=== PATIENT | male | born 1965 | race Caucasian/White ===

== ENCOUNTER → 2018-03-04 | Outpatient (CLI) | payer BC, OTHER | LOC: M SLEEP 20:00 | DX: G47.33 Obstructive sleep apnea (adult) (pediatric) (principal) | CPT/HCPCS: 95810 ==

== ENCOUNTER → 2018-03-24 | Outpatient (CLI) | payer BC, OTHER | LOC: M SLEEP 21:43 | DX: G47.33 Obstructive sleep apnea (adult) (pediatric) (principal) | CPT/HCPCS: 95811 ==

== ENCOUNTER → 2022-12-30 | Outpatient (CLI) | payer BC, OTHER ==
[2022-12-30 10:05] LABS: BASO % 0.7 % (0.0-1.0); EOS # 0.2 10^3/uL (0.0-0.5); EOS % 4.4 % (0.0-3.0); HEMATOCRIT 45.8 % (42.0-52.0); HEMOGLOBIN 15.1 g/dl (13.5-17.5); LYMPH # 1.4 10^3/uL (1.5-5.0); LYMPH % 33.4 % (24.0-44.0); MEAN CORPUSCULAR HEMOGLOBIN 28.9 pg (27.0-33.0); MEAN CORPUSCULAR VOLUME 87.6 fl (80.0-96.0); MONO # 0.5 10^3/uL (0.0-0.8); NEUTROPHILS # 2.1 10^3/uL (1.5-8.5); NEUTROPHILS % 50.3 % (36.0-66.0); PLATELET COUNT, AUTOMATED 230 10^3/uL (150-450); RED BLOOD COUNT 5.23 10^6/uL (4.30-6.10); WHITE BLOOD COUNT 4.1 10^3/uL (4.0-10.0)
[2022-12-30 10:32] LABS: PROSTATIC SPECIFIC AG MONITOR 0.97 NG/ML (< 4.00)
[2022-12-30 10:35] LABS: TOTAL IRON BINDING CAPACITY 365 UG/DL (250-425)
[2022-12-30 10:36] LABS: ALBUMIN 3.8 G/DL (3.2-5.2); ALKALINE PHOSPHATASE 72 U/L (46-116); ALT/SGPT 16 U/L (7.0-40); AST/SGOT 13 U/L (<34); BILIRUBIN,TOTAL 0.7 MG/DL (0.3-1.2); BLOOD UREA NITROGEN 15 MG/DL (9-23); CALCIUM LEVEL 9.4 MG/DL (8.5-10.1); CARBON DIOXIDE LEVEL 32 MMOL/L (20-31); CHLORIDE LEVEL 105 MMOL/L (98-107); CHOLESTEROL LEVEL 195 MG/DL (<200); CHOLESTEROL RISK RATIO 3.51 (<5); CREATININE FOR GFR 1.19 MG/DL (0.70-1.30); GLOMERULAR FILTRATION RATE > 60.0 (>56); GLUCOSE, FASTING 84 MG/DL (60-100); HDL CHOLESTEROL 55.4 MG/DL (>40); IRON (FE) 112 UG/DL (65-175); NON-HDL-C 139.6 MG/DL; PERCENT SATURATION 30.7 % (19.7-50.0); POTASSIUM SERUM 4.2 MMOL/L (3.5-5.1); SODIUM LEVEL 143 MMOL/L (136-145); TOTAL PROTEIN 6.5 G/DL (5.7-8.2); TRIGLYCERIDES LEVEL 108 MG/DL (<150)
[2022-12-30 10:37] LABS: TOTAL 25(OH) VITAMIN D 43.4 NG/ML (20.0-100.0)
[2022-12-30 10:38] LABS: FOLATE 15.2 NG/ML (>5.4); VITAMIN B12 LEVEL 749 PG/ML (211-911)
== END ==
LOC: M LAB 08:41
PROVIDERS: ATTEND Family Medicine
DX: Z98.84 Bariatric surgery status (principal); Z12.5 Encounter for screening for malignant neoplasm of prostate; I10 Essential (primary) hypertension